=== PATIENT | female | born 2000 | race Caucasian/White ===

== ENCOUNTER 2020-12-15 17:22 | Emergency (ER) | payer OTHER ==
[2020-12-15 21:44] LABS: HEMOGLOBIN 15.6 gm/dl (12.3-15.3); RED BLOOD COUNT 4.92 M/UL (4.00-5.10); WHITE BLOOD COUNT 17.2 K/UL (4.5-11.0)
[2020-12-15 22:05] LABS: BUN/CREATININE RATIO 13 (0-10)
[2020-12-16] MEDS ORDERED: KLOR-CON M2020 MEQ PO (02:28)
== END 2020-12-16 03:58 | disposition home or self-care (01) ==
LOC: ER1 17:22
PROVIDERS: Physician Assistant
DX: E86.0 Dehydration (principal); F41.9 Anxiety disorder, unspecified; E87.6 Hypokalemia
CPT/HCPCS: 71045; 80048; 81001; 84439; 84443; 84703; 85025; 85379; 93005; 99285; J7030

== ENCOUNTER 2020-12-18 22:23 | Emergency (ER) | payer OTHER ==
[~2020-12-18 22:23] MED LIST: KLOR-CON M2020 MEQ PO
[2020-12-19 00:22] LABS: HEMOGLOBIN 15.8 gm/dl (12.3-15.3); WHITE BLOOD COUNT 13.5 K/UL (4.5-11.0)
[2020-12-19 00:55] LABS: BUN/CREATININE RATIO 13 (0-10)
[2020-12-19] MEDS ORDERED: HYDROXYZINE PAM25 MG PO (02:51)
== END 2020-12-19 02:55 | disposition home or self-care (01) ==
LOC: ER1 22:23
PROVIDERS: Family Medicine
DX: R07.89 Other chest pain (principal); F41.9 Anxiety disorder, unspecified; R20.0 Anesthesia of skin; F12.90 Cannabis use, unspecified, uncomplicated; F17.210 Nicotine dependence, cigarettes, uncomplicated
CPT/HCPCS: 71045; 80053; 80307; 81001; 82550; 82553; 83735; 83874; 84439; 84443; 84484; 84703; 85025; 93005; 99285; Q0177

== ENCOUNTER 2021-01-13 19:25 | Emergency (ER) | payer OTHER ==
[~2021-01-13 19:25] MED LIST changes: +HYDROXYZINE PAM25 MG PO
[2021-01-13] MEDS ORDERED: BENADRYL 25MG C25 MG PO (21:35)
== END 2021-01-13 21:45 | disposition home or self-care (01) ==
LOC: ER1 19:25
DX: F41.9 Anxiety disorder, unspecified (principal); F17.210 Nicotine dependence, cigarettes, uncomplicated
CPT/HCPCS: 99283

== ENCOUNTER 2021-02-28 20:37 | Emergency (ER) | payer OTHER ==
[~2021-02-28 20:37] MED LIST changes: +BENADRYL 25MG C25 MG PO
[2021-02-28 21:07] LABS: HEMOGLOBIN 13.2 gm/dl (12.3-15.3); RED BLOOD COUNT 4.17 M/UL (4.00-5.10); WHITE BLOOD COUNT 8.6 K/UL (4.5-11.0)
[2021-02-28 21:34] LABS: BUN/CREATININE RATIO 14 (0-10)
== END 2021-02-28 23:00 | disposition home or self-care (01) ==
LOC: ER1 20:37
PROVIDERS: Physician Assistant
DX: R07.9 Chest pain, unspecified (principal); F17.200 Nicotine dependence, unspecified, uncomplicated
CPT/HCPCS: 71045; 80053; 82550; 82553; 83874; 84439; 84443; 84484; 84703; 85025; 85379; 93005; 99285